=== PATIENT | female | born 1970 | race African-American/Black ===

== ENCOUNTER 2018-05-24 19:22 | Emergency (ER) | payer BC ==
[2018-05-24] MEDS ORDERED: Acetaminophen 500 MG TAB ONE (19:51)
[2018-05-24 19:56] LABS: Bilirubin Negative (Negative); Blood, Urine Negative (Negative); Clarity Clear (Clear); Glucose, Urine (Dipstick) Negative (Negative); Leukocyte Negative (Negative); Nitrite Negative (Negative); Protein, Urine (Dipstick) Negative (Neg-Trace); Specific Gravity, Urine 1.015 (1.005-1.030); Urobilinogen 0.2 mg/dL (0.2-1.0)
[2018-05-24 20:00] LABS: #Basophils 0.1 thou/uL (0.0-0.2); #Lymphocytes 1.2 thou/uL (1.20-3.40); #Monocytes 0.8 thou/uL (0.11-0.59); #Neutrophils 7.9 thou/uL (1.40-6.50); %Basophils 0.7 % (0.0-1.0); %Eosinophils 0.2 % (0.0-10.0); %Lymphocytes 11.6 % (21.0-51.0); %Monocytes 7.6 % (0.0-10.0); %Neutrophils 79.8 % (42.0-75.0); Hemoglobin 12.8 g/dL (12.0-16.0); Mean Corpuscular Hemoglobin 27.1 pg (27.0-31.0); Mean Corpuscular Volume 82.2 fL (78.0-98.0); Mean Platelet Volume 8.8 fL (7.4-10.4); Platelet Count 201 thou/uL (130-400); RBC Distribution Width 12.8 % (11.5-14.5); Red Blood Cell (RBC) Count 4.73 mill/uL (4.20-5.40); White Blood Cell (WBC) Count 9.9 thou/uL (4.8-10.8)
[2018-05-24 20:10] LABS: BHCG - Serum Negative (NEGATIVE); Pregs Control Background? CLEAR/WHITE (CLR/WHITE); Pregs Control Bar Appear? YES (CONTROL BAR)
[2018-05-24 20:14] LABS: ALT (SGPT) 12 U/L (8-55); AST (SGOT) 16 U/L (5-34); Albumin 4.2 g/dL (3.5-5.0); Alkaline Phosphatase 61 U/L (40-150); Anion Gap 14 mmol/L (10-20); BUN (Urea Nitrogen) 13 mg/dL (7.0-18.7); Bilirubin, Total 0.5 mg/dL (0.2-1.2); Calc. Creatinine Clearance 0 mL/min (70-130); Carbon Dioxide 26 mmol/L (22-29); Chloride 102 mmol/L (98-107); Estimated GFR-MDRD Greater than 90; Globulin 3.5 g/dL (2.4-3.5); Glucose 84 mg/dL (70-105); Potassium 3.5 mmol/L (3.5-5.1); Protein, Total 7.7 g/dL (6.0-8.3); Sodium 138 mmol/L (136-145)
--- NOTE | 2018-05-24 21:46 | CT ---
CT ABDOMEN AND PELVIS WITH IV CONTRAST 05/24/18 INDICATION: 48-year-old female with lower abdominal pain. COMPARISON: None. FINDINGS: No comparisons are available. The lung bases are clear. No focal hepatic lesion is evident. Spleen, pancreas, and adrenal glands are normal appearing. The kidneys are normal appearing. No free fluid or enlarged lymph nodes are evident within the abdomen. There is a moderate amount of retained stool within the colon. There is prominent wall thickening inv olving proximal sigmoid colon and distal descending colon with scattered diverticula. There is mild f ree fluid in the pelvis. There is a fibroid uterus in place with one of the largest fibroids is seen within the left uterine body measuring 2.3 cm. The appendix is normal in the right lower quadrant. No definite acute osseous abnormality is evident. IMPRESSION: 1. Findings most suspicious for sigmoid diverticulitis. No drainable fluid collection is evident . Recommend appropriate colon screening following abatement of the patient's acute symptoms. 2. Fibroid uterus. POS: MADELINE
== END 2018-05-24 21:16 | disposition home or self-care (01) ==
LOC: SCSER 19:22
DX: K57.32 Diverticulitis of large intestine without perforation or abscess without bleeding (principal); D25.9 Leiomyoma of uterus, unspecified
CPT/HCPCS: 74177; 80053; 81003; 84703; 85025; 96360

== ENCOUNTER 2018-06-03 15:15 | Outpatient (CLI) | payer BC ==
--- NOTE | 2018-06-27 14:42 | MMO ---
Bilateral MAMMO Bilat Screen [facility]DI. CLINICAL HISTORY: Patient is 48 years old and is seen for screening. The patient has the following family history of breast cancer: maternal aunt, at age 60. The patient has no personal history of cancer. VIEWS: The views performed were: bilateral craniocaudal and bilateral mediolateral oblique. FILMS COMPARED: The present examination has been compared to prior imaging studies performed at [facility] on 11/16/2015, 05/16/2016 and 10/23/2016. This study has been interpreted with the assistance of computer-aided detection. MAMMOGRAM FINDINGS: The breasts are heterogeneously dense, which could obscure a lesion on mammography. There are no suspicious masses, suspicious calcifications, or new areas of architectural distortion. IMPRESSION: THERE IS NO MAMMOGRAPHIC EVIDENCE OF MALIGNANCY. A ROUTINE FOLLOW-UP MAMMOGRAM IN 1 YEAR IS RECOMMENDED. ACR BI-RADS Category 1 - Negative MAMMOGRAPHY NOTE: 1. A negative mammogram report should not delay a biopsy if a dominant of clinically suspicious mass is present. 2. Approximately 10% to 15% of breast cancers are not detected by mammography. 3. Adenosis and dense breasts may obscure an underlying neoplasm.
== END 2018-06-03 15:16 | disposition home or self-care (01) ==
LOC: SCSMAMMO 15:15
PROVIDERS: ATTEND Family Medicine
DX: Z12.31 Encounter for screening mammogram for malignant neoplasm of breast (principal); Z80.3 Family history of malignant neoplasm of breast
CPT/HCPCS: 77067

== ENCOUNTER 2018-06-12 15:24 | Outpatient (CLI) | payer BC ==
--- NOTE | 2018-06-12 16:24 | ULT ---
FPelvic ultrasound. HISTORY: Uterine fibroids. Multiple longitudinal and transverse images of the pelvis is obtained using a multi hertz curvilinear transabdominal as well as multi hertz endovaginal transducers. Real-time, color flow and spectral wa veform Doppler analysis used to evaluate the pelvis. The uterus measures 10.3 x 7.3 x 7.3 cm. There is a moderate size uterine fibroid measuring 2.8 x 2.1 x 2.5 cm in the anterior uterine wall. The endometrium is double wall thickness of 7 mm. Both ovaries visualized with good blood flow. Right ovary measures 3.9 x 2.9 x 2.5 cm while the left ovary measures 3.7 x 3.2 x 2.9 cm. Bilateral ovarian cysts seen. There is a septated cyst in the right measuring 2.1 x 2.1 x 1.4 cm. The left ovarian cyst cyst is measures 2.3 x 2.2 x 2.6 cm. A small amount of free pelvic fluid seen. IMPRESSION:. 1: Uterine fibroid. 2: Bilateral ovarian cysts. Correlate with follow-up sonography to evaluate for resolution.
--- NOTE | 2018-06-12 16:41 | ULT ---
FUltrasound urinary bladder: 06/12/2018 HISTORY: 48-year-old female with urinary retention. FINDINGS: Urinary bladder castaneda are normal and thin. Prevoid bladder volume is 295 mL. The bladder is completely empty after voiding. IMPRESSION: Normal
== END 2018-06-12 15:25 | disposition home or self-care (01) ==
LOC: SCSULT 15:24
PROVIDERS: ATTEND Family Medicine
DX: D25.1 Intramural leiomyoma of uterus (principal); R33.9 Retention of urine, unspecified; N83.202 Unspecified ovarian cyst, left side; N83.201 Unspecified ovarian cyst, right side
CPT/HCPCS: 76856

== ENCOUNTER 2018-07-25 11:06 | Outpatient (CLI) | payer BC ==
--- NOTE | 2018-07-25 12:30 | ULT ---
PELVIC ULTRASOUND: INDICATIONS: Pelvic pain. COMPARISON: Recent pelvic ultrasound, dated 06/12/2018. That exam revealed bilateral ovarian cysts. TECHNIQUE: Transabdominal and endovaginal ultrasound of the pelvis performed. FINDINGS: The uterus is mildly heterogeneous. The uterus is prominent, measured at 9.4 x 7 x 6.5 cm. An area of heterogeneity in the posterior fundus, measured 2.5 to 3 cm, is suggestive of a fibroid. The endometrium is upper normal, measured at 1 cm. Both ovaries are identified. There are normal appearing follicles bilaterally. No significant ovari an cyst seen today. Color Doppler and spectral analysis demonstrate blood flow to both ovaries. IMPRESSION: Mild prominently heterogeneous uterus with at least one uterine fibroid apparent. The endometrium is upper normal. The ovaries appear normal today. POS: MADELINE
== END 2018-07-25 11:07 | disposition home or self-care (01) ==
LOC: SCSULT 11:06
PROVIDERS: ATTEND Family Medicine
DX: N83.201 Unspecified ovarian cyst, right side (principal); N83.202 Unspecified ovarian cyst, left side; D25.9 Leiomyoma of uterus, unspecified
CPT/HCPCS: 76856